=== PATIENT | male | born 1965 | race Two or more races ===

== ENCOUNTER 2016-12-09 14:40 | Day surgery (SDC) | payer OTHER ==
[2016-12-09] MEDS ORDERED: PROPOFOL 200 MG/20 ML VIAL IVP ONE (14:48)
[2016-12-09] MEDS ORDERED: NS 500 ML IV ONE (14:48)
[2016-12-09] MEDS ORDERED: MIDAZOLAM 2 MG/2 ML VIAL IVP ONE (14:48)
[2016-12-09] MEDS ORDERED: fentaNYL 100 MCG/2 ML INJ IVP ONE (14:48)
--- NOTE | 2016-12-09 15:03 | CPEKG ---
Heart Rate: 97 RR Interval: 619 QRSD Interval: 96 QT Interval: 376 QTC Interval: 478 QRS [place]: -22 T Wave [place]: 22 EKG Severity - ABNORMAL ECG - EKG Impression: ATRIAL FIBRILLATION, V-RATE 79-115 EKG Impression: MULTIPLE VENTRICULAR PREMATURE COMPLEXES EKG Impression: BORDERLINE LEFT AXIS DEVIATION EKG Impression: Lateral T wave inversions Electronically Signed By: Feliberto Peters 09-Dec-2016 21:25:09
[2016-12-09 15:28] LABS: ANION GAP 12 mEq/L (8-16); CALCIUM 9.6 mg/dL (8.5-10.4); CARBON DIOXIDE 25 mEq/l (22-31); CHLORIDE 107 mEq/L (97-110); CREATININE 0.9 mg/dL (0.7-1.3); GLOMERULAR FILTRATION RATE > 60; GLUCOSE 97 mg/dL (70-100); POTASSIUM 4.4 mEq/L (3.5-5.2); SODIUM 144 mEq/L (134-144)
[2016-12-09 15:32] LABS: INR 1.22 (0.83-1.16); PROTIME(PATIENT) 15.4 SEC (12.0-15.0)
[2016-12-09 15:33] LABS: APTT 30.4 SEC (23.0-38.0)
[2016-12-09] MEDS ORDERED: ATROPINE SULFATE 1 MG/10 ML SYR ONE (16:27)
[2016-12-09] MEDS ORDERED: PROPOFOL 200 MG/20 ML VIAL ONE ×2 (16:49→17:04)
[2016-12-09] MEDS ORDERED: MIDAZOLAM 2 MG/2 ML VIAL ONE (16:57)
--- NOTE | 2016-12-09 17:16 | CPEKG ---
Heart Rate: 78 RR Interval: 769 P-R Interval: 208 QRSD Interval: 104 QT Interval: 408 QTC Interval: 465 P [place]: 26 QRS [place]: -33 T Wave [place]: 29 EKG Severity - ABNORMAL ECG - EKG Impression: SINUS RHYTHM EKG Impression: MIGUEL, CONSIDER BIATRIAL ABNORMALITIES EKG Impression: LEFT AXIS DEVIATION EKG Impression: LEFT VENTRICULAR HYPERTROPHY EKG Impression: Lateral T wave inversions Electronically Signed By: Feliberto Peters 09-Dec-2016 21:25:25
--- NOTE | 2016-12-09 23:17 | CPR ---
[f rep st] NONINVASIVE CARDIAC PROCEDURE REPORT PROCEDURE PERFORMED: Cardioversion report. INDICATION: Atrial fibrillation. ANESTHESIOLOGIST: Dr. Fadumo Pedersen PROCEDURE: Informed consent was obtained. CORRY was done. Patient was on Eliquis for anticoagulation . A single 200 joule biphasic synchronized DC cardioversion was done. This converted him to normal sinus rhythm. No complications. /[id number]/MODL
== END 2016-12-09 19:02 | disposition home or self-care (01) ==
LOC: FCATH 14:40
PROVIDERS: ATTEND Internal Medicine Cardiovascular Disease
PROC: 5A2204Z Restoration of Cardiac Rhythm, Single (ICD-10-PCS; principal; 2016-12-09)
PROC: B245ZZ4 Ultrasonography of Left Heart, Transesophageal (ICD-10-PCS; principal; 2016-12-09)
DX: I48.1 Persistent atrial fibrillation (principal); I10 Essential (primary) hypertension; G47.30 Sleep apnea, unspecified; Z79.01 Long term (current) use of anticoagulants
CPT/HCPCS: J0461; J2250; J2704

== ENCOUNTER 2017-09-05 07:15 | Inpatient (IN) | payer OTHER ==
[2017-09-16] MEDS ORDERED: niCARdipine/NACL 200 ML IV SCH (06:00)
[2017-09-16] MEDS ORDERED: INSULIN REGULAR HUMAN 100 UNIT in NS 100 ML IV ONE (06:00)
[2017-09-16] MEDS ORDERED: SODIUM BICARBONATE 20 MEQ, LIDOCAINE 1% 10 ML in NORMOSOL-R 1,000 ML MISC ONE (06:00)
[2017-09-16] MEDS ORDERED: AMINOCAPROIC ACID 5 GM/20 ML VIAL IV ONE (06:00)
[2017-09-16] MEDS ORDERED: PHENYLEPHRINE HCL 50 MG in NS 250 ML IV ONE (06:00)
[2017-09-16] MEDS ORDERED: ceFAZolin 2 GM/SWFI 2 GM/20 ML SYR IVP ONE (06:00)
[2017-09-16] MEDS ORDERED: MANNITOL 25% 12.5 GM/50 ML VIAL IVP ONE (06:00)
[2017-09-16] MEDS ORDERED: NS 1,000 ML IV ONE (06:00)
[2017-09-16] MEDS ORDERED: LIDOCAINE 1% 5 ML SDV ID PRN (06:00)
[2017-09-16] MEDS ORDERED: CITRATE DEXTROSE SOLN 500 ML BAG MISC ONE (06:00)
[2017-09-16] MEDS ORDERED: NOREPINEPHRINE BITARTRATE 16 MG in NS 250 ML IV ONE (06:00)
[2017-09-16] MEDS ORDERED: MIDAZOLAM 2 MG/2 ML VIAL IVP ONE (06:56)
--- NOTE | 2017-09-16 06:56 | PDANEPAE ---
ANE History of Present Illness here for Maze and ligation of atrial appendage ANE Past Medical History - Cardiovascular History Hx Hypertension: Yes Hx Arrhythmias: Yes Hx Chest Pain: No Hx Coronary Artery / Peripheral Vascular Disease: No Hx CHF / Valvular Disease: No Hx Palpitations: No Cardiovascular History Comment: afib/ aflutter. cardioversion x 4 - Pulmonary History Hx COPD: No Hx Asthma/Reactive Airway Disease: No Hx Recent Upper Respiratory Infection: No Hx Oxygen in Use at Home: No Hx Sleep Apnea: Yes Sleep Apnea Screening Result - Last Documented: Positive Pulmonary History Comment: rj positive- instructed pt to bring cpap to hospital - Neurologic History Hx Cerebrovascular Accident: No Hx Seizures: No Hx Dementia: No - Endocrine History Hx Diabetes: No - Renal History Hx Renal Disorders: No - Liver History Hx Hepatic Disorders: No - Neurological & Psychiatric Hx Hx Neurological and Psychiatric Disorders: No - Cancer History Hx Cancer: No - Congenital Disorder History Hx Congenital Disorders: No - GI History Hx Gastrointestinal Disorders: No - Other Health History Other Health History: extreme fatigue- pt feels may be r/t medications - Chronic Pain History Chronic Pain: No - Surgical History Prior Surgeries: appy at 17 yo. cardioversions 12/09/16, 11/02/16, 04/24/16, ANE Review of Systems Review of Systems: - Exercise capacity METS (RN): 3 METS ANE Patient History - Allergies Allergies/Adverse Reactions: No Known Allergies Allergy (Verified 08/12/17 14:11) - Home Medications Home Medications: Apixaban [Eliquis] 5 mg PO BID 04/24/16 [Last Taken 09/07/17] Multivitamins [Multivitamin (*)] 1 each PO DAILY 04/24/16 [Last Taken 09/15/17] [place]-3 Fatty Acids [Fish Oil 1000 mg (*)] 1,000 mg PO DAILY 04/24/16 [Last Taken 09/15/17] Metoprolol Tartrate 08/12/17 [Last Taken 09/15/17 19:00] Amlodipine Besylate [Norvasc] 2.5 mg DAILY 09/16/17 [Last Taken 09/15/17] - Smoking Hx Smoking Status: Never smoked - Family Anes Hx Family Hx Anesthesia Complications: none ANE Labs/Vital Signs - Vital Signs Height: 168 cm Weight: 90.718 kg ANE Physical Exam - Airway Neck exam: FROM, spinal fusion Mallampati Score: Class 1 Mouth exam: normal dental/mouth exam - Pulmonary Pulmonary: no respiratory distress - Cardiovascular Cardiovascular: regular rate and rhythym, irregularly irregular - ASA Status ASA Status: III ANE Anesthesia Plan Anesthesia Plan: general endotracheal anesthesia Lines/Monitors: central line, CORRY Specialized Airway: double lumen tube
[2017-09-16] MEDS ORDERED: DOPamine/DEXTROSE/250 ML BAG IV ONE (06:58)
[2017-09-16] MEDS ORDERED: CITRATE DEXTROSE SOLN 500 ML BAG ONE (06:59)
[2017-09-16] MEDS ORDERED: POTASSIUM Cl (KCl) 20 MEQ/50 ML BAG IV ONE (06:59)
[2017-09-16] MEDS ORDERED: NA BICARBONATE 50 MEQ/50 ML VIAL ONE (06:59)
[2017-09-16] MEDS ORDERED: MILRINONE/DEXTROSE/100 ML BAG IV ONE (06:59)
[2017-09-16] MEDS ORDERED: AMINOCAPROIC ACID 5 GM/20 ML VIAL ONE (06:59)
[2017-09-16] MEDS ORDERED: LIDOCAINE 2% 100 MG/5 ML SYR ONE (06:59)
[2017-09-16] MEDS ORDERED: niCARdipine/NACL/200 ML BAG IV ONE (06:59)
[2017-09-16] MEDS ORDERED: PROTAMINE SULFATE 50 MG/5 ML VIAL IVP ONE (06:59)
[2017-09-16] MEDS ORDERED: ALBUMIN 5% 250 ML BOTTLE IV ONE (06:59)
[2017-09-16] MEDS ORDERED: CALCIUM CHLORIDE 1 GM/10 ML INJ ONE (06:59)
[2017-09-16] MEDS ORDERED: AMIODARONE HCL 150 MG/3 ML VIAL ONE (07:00)
[2017-09-16] MEDS ORDERED: HEPARIN 10,000 UNIT/10 ML MDV ONE (07:00)
[2017-09-16] MEDS ORDERED: ceFAZolin 1 GM VIAL ONE (07:00)
[2017-09-16] MEDS ORDERED: MAGNESIUM SULFATE 1 GM/2 ML VIAL ONE (07:00)
[2017-09-16] MEDS ORDERED: methylPREDNISolone SOD SUCC 1 GM/8 ML VIAL ONE (07:00)
[2017-09-16] MEDS ORDERED: ADENOSINE 6 MG/2 ML VIAL ONE (07:00)
--- NOTE | 2017-09-16 07:03 | PDHPUP ---
History & Physical Update H&P update statement: This history and physical update is based on an assessment of the patient which was completed after admission or registration (within 24 hours), but prior to the surgery/procedure.
[2017-09-16] MEDS ORDERED: fentaNYL 100 MCG/2 ML INJ ONE ×5 (07:05→14:16)
[2017-09-16] MEDS ORDERED: PROPOFOL/EMULSION 500 MG/50 ML BOTTLE IV ONE (07:06)
[2017-09-16] MEDS ORDERED: LR 1,000 ML IV ONE (07:12)
[2017-09-16] MEDS: MUPIROCIN 2% 22 GM OINT NS SCH ×2 (07:15→18:55)
[2017-09-16] MEDS ORDERED: DEXAMETHASONE 10 MG/ML VIAL IVP ONE (07:30)
[2017-09-16] MEDS ORDERED: BUPIVACAINE 0.25% 30 ML SDV ONE (08:16)
[2017-09-16] MEDS ORDERED: fentaNYL 50 MCG PATCH TD ONE (12:00)
[2017-09-16] MEDS ORDERED: PROMETHAZINE HCL 25 MG/ML INJ IVP PRN (12:49)
[2017-09-16] MEDS ORDERED: ONDANSETRON 4 MG/2 ML VIAL IVP PRN (12:49)
[2017-09-16] MEDS ORDERED: ALBUTEROL 3 ML DEYVIAL IH PRN (12:49)
[2017-09-16] MEDS ORDERED: NALOXONE HCL 0.4 MG/ML INJ IVP PRN (12:49)
[2017-09-16] MEDS ORDERED: DEXAMETHASONE 4 MG/ML VIAL IVP PRN (12:49)
[2017-09-16] MEDS ORDERED: METOCLOPRAMIDE 10 MG/2 ML VIAL IVP PRN (13:35)
[2017-09-16] MEDS ORDERED: METOCLOPRAMIDE 10 MG TAB PO PRN (13:35)
[2017-09-16] MEDS ORDERED: ACETAMINOPHEN 325 MG TAB PO PRN (13:35)
[2017-09-16] MEDS ORDERED: ceFAZolin 2 GM/DEXTROSE 100 ML IV SCH (14:00)
[2017-09-16] MEDS: fentaNYL 100 MCG/2 ML INJ IVP PRN ×3 (14:04→14:50)
[2017-09-16] MEDS ORDERED: HYDROmorphONE/DILAUDID 1 MG/ML INJ ONE (14:20)
[2017-09-16] MEDS: HYDROmorphONE/DILAUDID 1 MG/ML INJ IVP PRN ×2 (14:23→14:39)
[2017-09-16] MEDS ORDERED: ENOXAPARIN 80 MG/0.8 ML SYR SC ONE (16:30)
[2017-09-16] MEDS: HYDROCODONE/APAP 5/325 TAB PO PRN ×2 (17:40→21:55)
--- NOTE | 2017-09-16 17:54 | GOP ---
[f rep st] OPERATIVE REPORT DATE OF OPERATION: 09/16/2017 SURGEON: Mason Holland DO MUCKER COFFERDAM: Justine Granados PA-C. ANESTHESIOLOGIST: Aaron Bolaños MD PREOPERATIVE DIAGNOSIS: Long-standing persistent atrial fibrillation. POSTOPERATIVE DIAGNOSIS: Long-standing persistent atrial fibrillation. PROCEDURE PERFORMED: Bilateral thoracoscopic hybrid MAZE procedure with bilateral testing. FINDINGS: DESCRIPTION OF PROCEDURE: Patient was referred for a thoracoscopic MAZE procedure with a history of failed catheter ablations x2 and multiple cardioversions. His Eliquis was held, and he was bridged w [facility] Lovenox. He was consented and brought to the operating room. A double-lumen endotracheal tube w as placed as was the monitoring femoral arterial line and a triple lumen CVP. He was placed supine w [facility] IV bags beneath each chest for intermittent inflation for exposure. The arms were placed lateral . He was prepped and draped in a sterile classical manner. Timeout was confirmed with the team. We then began on the right chest with a camera port at the 4th intercostal space in the anterior axil raquel line, directed at the transverse sinus. Then, under thoracoscopic guidance, we placed 2 other p ortals: One below the 2nd intercostal rib in the mid clavicular line, and one in the anterior axilla ry line above the diaphragm under fluoroscopic guidance; all directed toward the mediastinum. With t he lung deflated, and with inflating CO2, we then opened the pericardium approximately 2 cm ventral t o the phrenic nerve and extended it up above the superior vena cava. This was extended inferiorly do wn toward the diaphragm, avoiding the phrenic nerve. Three stay sutures were placed for retraction. We then did testing for GPs with multiple sites identified and ablated on the right side. We then, with blunt dissection, developed a plane from the right superior pulmonary vein to the left superior pulmonary vein with direct visualization. We then used the cool rail to ablate the fat in the area f or better visualization. The left pulmonary vein, the ligament, and the left atrial appendage were v isualized through the transverse sinus. We then spent a great deal of time ablating from above the l eft atrial appendage and the left superior pulmonary vein all the way back to the right superior pulm onary vein, overlapping it with multiple maharaj with transmural lesions confirmed by being less than 2 0 seconds in time. We then developed the oblique sinus, and through the inferior port, brought a dis secting light between the main pulmonary artery and right superior pulmonary vein. We then placed th e clamp across the antrum and performed approximately 9 or 10 maharaj until transmurality was confirmed overlapping 3 lines staying on the antrum. We had tested the patient for entrance block, and there was none prior to the procedure; however, at the completion of the procedure testing for entrance blo ck at the superior, inferior, and the bifurcation were negative. We then performed the inferior box lesion set, connecting the left inferior pulmonary vein all the way across to the right inferior pulm onary vein with transmurality confirmed. Multiple repeat lesion sets were performed. We then perfor med the right atrial lesion set with transmurality confirmed, utilizing the cool rail, staying away f rom the sinus node on the very upper portion of the superior vena cava to the diaphragm along the inf erior vena cava. We then did a connecting lesion to the right atrial appendage with transmurality co nfirmed, as well. We then closed the pericardium over the right atrium with a single suture to avoid herniation. A single drain was placed. 10.5% Marcaine with epinephrine was used to infiltrate inte rcostal spaces, and the lung was reinflated. We then deflated the right IV bag under the chest and i nflated the left one. We then deflated the left lung and placed 3 portals in the standard fashion un henok fluoroscopic guidance. We then opened the pericardium inferior to the phrenic nerve, staying shefali te posterior along the hilum up above to the pulmonary artery. Visualization of the transmural lesio ns coming across on the other side were well identified. We then divided the ligament with a Harmoni c scalpel. We then developed a plane between the left superior pulmonary vein and the pericardium. We then brought the dissecting light from inferior and, with direct thoracoscopic visualization, watc hed it come through the pericardium and previously developed plane between the pericardium and the le ft superior pulmonary vein without difficulty. It was grasped and brought up. We then directed the clamp to the antrum of the left pulmonary vein system and performed 6 lesion sets. Prior to doing th at we tested for entrance block, and it was quiet. Despite that, we repeated the ablation and repeat ed testing, which remained silent for entrance block. The patient was in atrial fib during the proce dure. We then completed the inferior lesion set, overlapping the previous inferior lesion set done f rom the other side, making sure it transected the cross-clamp sites on the pulmonary veins. We then performed on the dome of the left atrium as well, and then the appendage from the transverse line up to the appendage. We then brought an AtriClip through the inferior port. I then placed an AtriClip u nder CORRY guidance flush with the left atrium without difficulty. The left atrium was decompressed. The dome lesion was also connected to the previous dome lesion, crossing the pulmonary vein ablation site. Pericardium was left open. A single drain was placed. The surgical sites were closed with a single chest tube brought out the inferior drain and connected to a Pleur-evac. He was extubated and returned to the recovery room. Prior to that, we cardioverted him into sinus rhythm with a rate of 65. /[id number]/MODL
[2017-09-16] MEDS: ceFAZolin 2 GM in D5W 100 ML IV SCH ×2 (18:24→21:25)
[2017-09-16] MEDS: METOPROLOL TARTRATE 50 MG TAB PO SCH (21:25)
[2017-09-17] MEDS: ceFAZolin 2 GM in D5W 100 ML IV SCH ×2 (01:14→05:29)
[2017-09-17] MEDS: HYDROCODONE/APAP 5/325 TAB PO PRN ×2 (01:35→06:04)
[2017-09-17 05:49] LABS: HEMOGLOBIN 15.6 g/dL (13.7-17.5); MEAN CELL HEMOGLOBIN CONCENTR. 35.5 g/dL (32.4-36.7); RED BLOOD CELL COUNT 4.73 10^6/uL (4.40-6.38); RED CELL DISTRIBUTION WIDTH 12.8 % (11.5-15.2)
[2017-09-17] MEDS ORDERED: HEPARIN 5,000 UNIT/0.5 ML SYR SC SCH (06:00)
[2017-09-17 06:14] LABS: ANION GAP 17 mEq/L (8-16); CALCIUM 8.7 mg/dL (8.5-10.4); CARBON DIOXIDE 23 mEq/l (22-31); CHLORIDE 101 mEq/L (97-110); CREATININE 1.4 mg/dL (0.7-1.3); GLOMERULAR FILTRATION RATE 53; GLUCOSE 167 mg/dL (70-100); POTASSIUM 5.9 mEq/L (3.5-5.2); SODIUM 141 mEq/L (134-144)
[2017-09-17] MEDS ORDERED: KETOROLAC 15 MG/1 ML SDV IVP ONE ×2 (06:45→07:00)
--- NOTE | 2017-09-17 07:35 | SOAPPROG ---
SOAP Progress Note Assessment/Plan: POD #1 B/L thorascopic hybrid Maze procedure Long standing persistent atrial fibrillation s/p hybrid Maze - CTs likely out this morning - Thromboprophylaxis and beta-zeinab resumed - PT for ambulation Acute blood loss anemia - Stable without the need for blood product transfusions RAKAN - Likely secondary to dehydration - IVF ordered Subjective: Hard to take deep breaths. Come chest tube site pain. Feels anxious about his prognosis. Objective: Vital Signs Temp Pulse Resp BP Pulse Ox 36.9 C 94 20 132/88 H 96 09/17/17 04:00 09/17/17 04:00 09/17/17 04:00 09/17/17 04:00 09/17/17 04:00 Laboratory Results 09/17/17 05:36 09/17/17 05:36 09/16/17 09/17/17 09/18/17 05:59 05:59 05:59 Intake Total 2970 Output Total 850 Balance 2120 Physical Exam - Physical Exam General Appearance: WD/WN, alert, no apparent distress, anxiety EENT: No scleral icterus (R), No scleral icterus (L) Neck: normal inspection Respiratory: No respiratory distress Cardiac/Chest: regular rate, rhythm Abdomen: non-tender, soft, No distended Skin: normal color, warm/dry Extremities: No pedal edema Neuro/Psych: no motor/sensory deficits, alert, normal mood/affect, oriented x 3 ICD10 Worksheet Patient Problems: Problems Problem Status Onset Atrial fibrillation or flutter Acute
[2017-09-17] MEDS: METOPROLOL TARTRATE 50 MG TAB PO SCH ×2 (08:27→20:54)
[2017-09-17] MEDS: MULTIVITAMINS 1 EACH TAB PO SCH (08:28)
[2017-09-17] MEDS: OMEGA-3 FATTY ACIDS 1,000 MG CAP PO SCH (08:28)
[2017-09-17] MEDS: APIXABAN 5 MG TAB PO SCH ×2 (08:29→20:54)
[2017-09-17] MEDS: 1/2 NS 1,000 ML IV SCH ×2 (08:32→14:58)
[2017-09-17] MEDS ORDERED: fentaNYL 50 MCG PATCH TD SCH (10:00)
[2017-09-17] MEDS: predniSONE 20 MG TAB PO SCH ×2 (10:14→18:15)
[2017-09-17] MEDS ORDERED: ALPRAZolam 0.25 MG TAB PO PRN (10:54)
[2017-09-17] MEDS: KETOROLAC 30 MG/1 ML SDV IVP SCH ×3 (12:19→23:51)
[2017-09-17] MEDS ORDERED: FAMOTIDINE 20 MG TAB PO PRN (14:44)
[2017-09-17] MEDS ORDERED: MAG HYDROX/AL HYDROX/SIMETH 30 ML UDCUP PO PRN (14:45)
--- NOTE | 2017-09-17 15:55 | ASMTCMCOM ---
CM Note CM Note Notes: Pt. is a 52-year-old man admitted w/ Afib. Pt. is anxious. Pt. lives w/ his Marley. Await PT consult to assist w/ d/c POC. RN anticipates independent d/c when ready. CM to follow. Date Signed: 09/17/2017 03:55 PM Electronically Signed By:Audra Sena LCSW
[2017-09-17 17:34] LABS: ANION GAP 10 mEq/L (8-16); CALCIUM 8.8 mg/dL (8.5-10.4); CARBON DIOXIDE 25 mEq/l (22-31); CHLORIDE 99 mEq/L (97-110); CREATININE 1.2 mg/dL (0.7-1.3); GLOMERULAR FILTRATION RATE > 60; GLUCOSE 141 mg/dL (70-100); POTASSIUM 4.5 mEq/L (3.5-5.2); SODIUM 134 mEq/L (134-144)
[2017-09-18 06:13] LABS: ANION GAP 13 mEq/L (8-16); CARBON DIOXIDE 24 mEq/l (22-31); CHLORIDE 98 mEq/L (97-110); GLOMERULAR FILTRATION RATE > 60; GLUCOSE 151 mg/dL (70-100); POTASSIUM 5.1 mEq/L (3.5-5.2); SODIUM 135 mEq/L (134-144)
[2017-09-18] MEDS: KETOROLAC 30 MG/1 ML SDV IVP SCH ×3 (06:17→17:54)
--- NOTE | 2017-09-18 07:50 | SOAPPROG ---
SOAP Progress Note Assessment/Plan: POD #2 B/L thorascopic hybrid Maze procedure Long standing persistent atrial fibrillation s/p hybrid Maze - Thromboprophylaxis and beta-zeinab resumed - PT for ambulation Acute blood loss anemia - Stable without the need for blood product transfusions RAKAN - Resolved with hydration KELSEY - Home device in room and used while sleeping Respiratory insufficiency - Pt continues to be tachypneic. CXR reviewed without PTX although right hemidiaphragm elevated. Trial of Xanax underway to r/o anxiety component. Doubtful of PE since pt anticoagulated. Subjective: Hard to take deep breaths. Denies pain. Feels nervous although not sure why. Objective: Vital Signs Temp Pulse Resp BP Pulse Ox 36.7 C 88 20 147/93 H 77 L 09/18/17 05:15 09/18/17 05:15 09/18/17 05:15 09/18/17 05:15 09/18/17 07:29 Laboratory Results 09/17/17 05:36 09/18/17 05:00 09/17/17 09/18/17 09/19/17 05:59 05:59 05:59 Intake Total 2970 3185 Output Total 850 1200 Balance 2120 1984 Physical Exam - Physical Exam General Appearance: WD/WN, alert, mild distress EENT: No scleral icterus (R), No scleral icterus (L) Neck: normal inspection Respiratory: accessory muscle use, retractions Cardiac/Chest: regular rate, rhythm Abdomen: non-tender, soft, No distended Skin: normal color, warm/dry Extremities: No pedal edema Neuro/Psych: no motor/sensory deficits, alert, normal mood/affect, oriented x 3 ICD10 Worksheet Patient Problems: Problems Problem Status Onset Atrial fibrillation or flutter Acute
[2017-09-18] MEDS ORDERED: MAGNESIUM HYDROXIDE 30 ML UDCUP PO PRN (08:07)
[2017-09-18] MEDS ORDERED: POLYETHYLENE GLYCOL 3350 17 GM PKT PO PRN (08:07)
[2017-09-18] MEDS ORDERED: LACTULOSE 20 GM/30 ML UDCUP PO PRN (08:07)
[2017-09-18] MEDS ORDERED: BISACODYL 10 MG SUPP PR PRN (08:07)
[2017-09-18] MEDS: METOPROLOL TARTRATE 50 MG TAB PO SCH ×2 (08:12→20:24)
[2017-09-18] MEDS: ALPRAZolam 0.25 MG TAB PO SCH ×3 (08:12→20:15)
[2017-09-18] MEDS: MULTIVITAMINS 1 EACH TAB PO SCH (08:12)
[2017-09-18] MEDS: OMEGA-3 FATTY ACIDS 1,000 MG CAP PO SCH (08:12)
[2017-09-18] MEDS: APIXABAN 5 MG TAB PO SCH ×2 (08:12→20:24)
[2017-09-18] MEDS: SENNOSIDES/DOCUSATE SODIUM TAB PO SCH ×2 (08:23→20:25)
[2017-09-18] MEDS: predniSONE 20 MG TAB PO SCH ×2 (08:23→17:55)
[2017-09-18] MEDS ORDERED: FUROSEMIDE 40 MG/4 ML VIAL IVP ONE (09:09)
[2017-09-19] MEDS: KETOROLAC 30 MG/1 ML SDV IVP SCH ×2 (00:07→06:19)
[2017-09-19] MEDS ORDERED: IBUPROFEN 200 MG TAB PO PRN (07:45)
--- NOTE | 2017-09-19 07:45 | SOAPPROG ---
SOAP Progress Note Assessment/Plan: POD #3 B/L thorascopic hybrid Maze procedure Long standing persistent atrial fibrillation s/p hybrid Maze - Thromboprophylaxis and beta-zeinab resumed - PT for ambulation Acute blood loss anemia - Stable without the need for blood product transfusions RAKAN - Resolved with hydration KELSEY - Home device in room and used while sleeping Respiratory insufficiency - Improved. Will monitor right hemidiaphragm elevation. Disposition - Home today without services Subjective: No complaints. Feels well. Objective: Vital Signs Temp Pulse Resp BP Pulse Ox 36.7 C 70 16 151/90 H 96 09/19/17 04:00 09/19/17 04:00 09/19/17 04:00 09/19/17 04:00 09/19/17 04:00 Laboratory Results 09/17/17 05:36 09/18/17 05:00 09/18/17 09/19/17 09/20/17 05:59 05:59 05:59 Intake Total 3185 1100 Output Total 1200 Balance 1985 1100 Physical Exam - Physical Exam General Appearance: WD/WN, alert, no apparent distress EENT: No scleral icterus (R), No scleral icterus (L) Neck: normal inspection Respiratory: No respiratory distress Cardiac/Chest: regular rate, rhythm Abdomen: non-tender, soft, No distended Skin: normal color, warm/dry Extremities: No pedal edema Neuro/Psych: no motor/sensory deficits, alert, normal mood/affect, oriented x 3 ICD10 Worksheet Patient Problems: Problems Problem Status Onset Atrial fibrillation or flutter Acute
[2017-09-19] MEDS: OMEGA-3 FATTY ACIDS 1,000 MG CAP PO SCH ×2 (08:01→08:05)
[2017-09-19] MEDS: SENNOSIDES/DOCUSATE SODIUM TAB PO SCH (08:01)
[2017-09-19] MEDS: MULTIVITAMINS 1 EACH TAB PO SCH (08:02)
[2017-09-19] MEDS: METOPROLOL TARTRATE 50 MG TAB PO SCH (08:02)
[2017-09-19] MEDS: APIXABAN 5 MG TAB PO SCH (08:02)
--- NOTE | 2017-09-19 08:50 | PDHOMEO2F ---
Home Oxygen Face to Face Home Orders: I certify that a physician or a nurse practitioner or physician's assistant teacher primary has had a [id number] encounter with this patient on the date of this order due to the diagnosis listed, which relates to the primary reason the patient requires home oxygen. Alternative treatments have been tried, or considered, and deemed ineffective. It is anticipated that supplemental oxygen will result in improvement with treatment. Home oxygen qualifying diagnosis: s/p thoracoscopic Maze, hypoxemia, right elevated barbara-diaphragm SpO2 on room air (%): 60 Frequency of home oxygen needed: with activity Home oxygen liters per minute: 2 Home oxygen delivery device: nasal cannula Concentrator: Yes E-tanks for mobility and back up: Yes If ordering portable O2, is the patient mobile in the home?: Yes I certify that, based on these findings, the home oxygen is medically necessary for this patient for the following length of time. Length of time home oxygen needed: 1 month
[2017-09-19] MEDS ORDERED: predniSONE 20 MG TAB PO SCH (09:00)
[2017-09-19] MEDS ORDERED: amLODIPine BESYLATE 5 MG TAB PO SCH (09:00)
--- NOTE | 2017-09-19 09:18 | PDDCSUM ---
Discharge Summary Discharge Summary: ADMISSION DATE: 09/16/17 DISCHARGE DATE: 09/19/17 ADMISSION DX: 1. Longstanding persistent atrial fibrillation DISCHARGE DX: 1. Longstanding persistent atrial fibrillation 2. Acute blood loss anemia 3. Acute kidney injury PROCEDURES 09/16/17, Mason Holland: 1. Bilateral thoracoscopic hybrid Maze procedure with bilateral testing HOSPITAL COURSE BY PROBLEM LIST 1. Longstanding persistent atrial fibrillation - s/p hybrid Maze procedure. Stable post-operative course. Discharge in sinus rhythm. Thromboprophylaxis with Eliquis prescribed. AF prophylaxis with metoprolol. 2. Acute blood loss anemia - stable without the need for blood product transfusions 3. Acute kidney injury - resolved with fluid administration. CONDITION Good DISPOSITION Home, self-care ACTIVITY Pt was instructed on sternal precautions, activity limitations, and which problems to call [facility] with. Please see Discharge Plan in chart for specifics. D/C MEDICATIONS 1. Apixaban [Eliquis] 5 mg PO BID 2. Multivitamins [Multivitamin (*)] 1 each PO DAILY 3. [place]-3 Fatty Acids [Fish Oil 1000 mg (*)] 1,000 mg PO DAILY 4. Amlodipine Besylate [Norvasc] 2.5 mg DAILY 5. Acetaminophen [Tylenol 325mg (*)] 325 - 650 mg PO Q4HRS PRN 6. Hydrocodone/APAP 5/325 [[place] 5/325 (*)] 1 - 2 tab PO Q4HRS PRN 7. Ibuprofen [Motrin (*)] 400 mg PO Q6HRS PRN 8. Metoprolol Tartrate [Lopressor 50 mg (*)] 50 mg PO BID 9. Sennosides/Docusate Sodium [Senokot-S] 2 tab PO BID 10. methylPREDNISolone [Medrol Dose Harvinder] 4 mg PO AD PENDING STUDIES/LABS 1. CXR prior to surgical follow-up F/U APPOINTMENTS 1. Mason Holland - 09/27/17, 1:15
[2017-09-19 11:04] VITALS: BP 138/97; PULSE 73; RESP 24; TEMP 97.5; O2SAT 93
--- NOTE | 2017-09-20 16:14 | ASDISCHSUM ---
Discharge Information Plan Status:Home with Home Health Medically Cleared to Leave:09/19/2017 Discharge Date:09/19/2017 11:30 AM CM D/C Disposition: ADT D/C Disposition:Home, Routine, Self-Care Projected Discharge Date:09/19/2017 12:00 AM Transportation at D/C: Discharge Delay Reason: Follow-Up Date:09/19/2017 12:00 AM Discharge Slot: Final Diagnosis: Placement Information Patient Contact Information Contact Name:SARITA Relationship: Address:[address] [place] [address] Work Phone: [facility] [place] Alternate Phone: [facility]/Zip Code:[place] [address] Email: Financial Information Financial Class:[facility] Primary Plan Desc:[employer] OPEN ACC LOCAL Primary Plan Number:[id number] Secondary Plan Desc: Secondary Plan Number: Assessment Information [facility] CM Progress Note CM Note CM Note Notes: Pt. is a 52-year-old man admitted w/ Afib. Pt. is anxious. Pt. lives w/ his [place]. Await PT consult to assist w/ d/c POC. RN anticipates independent d/c when ready. CM to follow. Date Signed: 09/17/2017 03:55 PM Electronically Signed By:Audra Sena LCSW Intervention Information
== END 2017-09-19 11:30 | disposition home or self-care (01) | DRG 229 ==
LOC: F2W 09-16 05:56
PROVIDERS: ADMIT Thoracic Surgery (Cardiothoracic Vascular Surgery); ATTEND Thoracic Surgery (Cardiothoracic Vascular Surgery)
PROC: 02584ZZ Destruction of Conduction Mechanism, Percutaneous Endoscopic Approach (ICD-10-PCS; principal; 2017-09-16 07:15)
PROC: 02L70CK Occlusion of Left Atrial Appendage with Extraluminal Device, Open Approach (ICD-10-PCS; principal; 2017-09-16 07:15)
PROC: 02HV33Z Insertion of Infusion Device into Superior Vena Cava, Percutaneous Approach (ICD-10-PCS; principal; 2017-09-16 07:15)
PROC: B245ZZ4 Ultrasonography of Left Heart, Transesophageal (ICD-10-PCS; principal; 2017-09-16 07:15)
DX: I48.1 Persistent atrial fibrillation (principal); D62 Acute posthemorrhagic anemia; N17.9 Acute kidney failure, unspecified; I11.9 Hypertensive heart disease without heart failure; G47.33 Obstructive sleep apnea (adult) (pediatric); F41.9 Anxiety disorder, unspecified; R06.89 Other abnormalities of breathing; Z79.01 Long term (current) use of anticoagulants
CPT/HCPCS: J0153; J0171; J0282; J0690; J1170; J1265; J1644; J1815; J1885; J1940; J2001; J2150; J2250; J2260; J2370; J2704; J2720; J2765; J2930; J3010; J7060; P9041

== ENCOUNTER → 2017-09-27 | Outpatient (CLI) | payer OTHER | LOC: FIMAGING 12:37 | PROVIDERS: ATTEND Thoracic Surgery (Cardiothoracic Vascular Surgery) | DX: R06.02 Shortness of breath (principal); M48.14 Ankylosing hyperostosis [Forestier], thoracic region; Z86.79 Personal history of other diseases of the circulatory system ==

== ENCOUNTER 2017-09-28 09:35 | Day surgery (SDC) | payer OTHER ==
[2017-09-28] MEDS ORDERED: ATROPINE SULFATE 1 MG/10 ML SYR IVP ONE (09:39)
[2017-09-28] MEDS ORDERED: BENZOCAINE UNIT DOSE SPRAY HURRICAINE MM ONE (09:39)
[2017-09-28] MEDS ORDERED: MIDAZOLAM 2 MG/2 ML VIAL IVP ONE (09:39)
[2017-09-28] MEDS ORDERED: NS 500 ML IV ONE (09:39)
[2017-09-28] MEDS ORDERED: fentaNYL 100 MCG/2 ML INJ IVP ONE (09:39)
--- NOTE | 2017-09-28 09:51 | CPEKG ---
Heart Rate: 124 RR Interval: 484 QRSD Interval: 86 QT Interval: 332 QTC Interval: 477 QRS [place]: 103 T Wave [place]: 34 EKG Severity - ABNORMAL ECG - EKG Impression: ATRIAL FLUTTER, A-RATE 300 EKG Impression: RIGHT AXIS DEVIATION EKG Impression: CONSIDER LEFT VENTRICULAR HYPERTROPHY Electronically Signed By: Jose Manuel Adam 28-Sep-2017 11:06:31
[2017-09-28 10:16] LABS: INR 1.28 (0.83-1.16)
[2017-09-28] MEDS ORDERED: PROPOFOL 200 MG/20 ML VIAL ONE (10:54)
[2017-09-28] MEDS ORDERED: LIDOCAINE 2% 100 MG/5 ML SYR ONE (10:57)
[2017-09-28] MEDS ORDERED: LIDOCAINE 1% 5 ML SDV ONE (10:58)
[2017-09-28] MEDS ORDERED: LABETALOL HCL 50 MG/10 ML SYR IVP PRN (11:17)
[2017-09-28] MEDS ORDERED: NALOXONE HCL 0.4 MG/ML INJ IVP PRN (11:17)
--- NOTE | 2017-09-28 11:17 | PDHPUP ---
History & Physical Update H&P update statement: This history and physical update is based on an assessment of the patient which was completed after admission or registration (within 24 hours), but prior to the surgery/procedure. H&P update: H&P reviewed & patient examined, no change in patient's condition since H&P completed
--- NOTE | 2017-09-28 11:17 | PDANEPAE ---
ANE History of Present Illness History of Ablation for a-fib. Now with A-fib for CORRY and cardioversion. ANE Past Medical History - Cardiovascular History Hx Hypertension: Yes Hx Arrhythmias: Yes Hx Chest Pain: No Hx Coronary Artery / Peripheral Vascular Disease: No Hx CHF / Valvular Disease: No Hx Palpitations: No Cardiovascular History Comment: afib/ aflutter. cardioversion x 4 - Pulmonary History Hx COPD: No Hx Asthma/Reactive Airway Disease: No Hx Recent Upper Respiratory Infection: No Hx Oxygen in Use at Home: No Hx Sleep Apnea: Yes Pulmonary History Comment: rj positive- instructed pt to bring cpap to hospital - Neurologic History Hx Cerebrovascular Accident: No Hx Seizures: No Hx Dementia: No - Endocrine History Hx Diabetes: No - Renal History Hx Renal Disorders: No - Liver History Hx Hepatic Disorders: No - Neurological & Psychiatric Hx Hx Neurological and Psychiatric Disorders: No - Cancer History Hx Cancer: No - Congenital Disorder History Hx Congenital Disorders: No - GI History Hx Gastrointestinal Disorders: No - Other Health History Other Health History: extreme fatigue- pt feels may be r/t medications - Chronic Pain History Chronic Pain: No - Surgical History Prior Surgeries: appy at 17 yo. cardioversions 12/09/16, 11/02/16, 04/24/16, ANE Review of Systems Review of Systems: ANE Patient History - Allergies Allergies/Adverse Reactions: No Known Allergies Allergy (Verified 08/12/17 14:11) - Home Medications Home Medications: Apixaban [Eliquis] 5 mg PO BID 04/24/16 [Last Taken 09/07/17] Multivitamins [Multivitamin (*)] 1 each PO DAILY 04/24/16 [Last Taken 09/15/17] [place]-3 Fatty Acids [Fish Oil 1000 mg (*)] 1,000 mg PO DAILY 04/24/16 [Last Taken 09/15/17] Amlodipine Besylate [Norvasc] 2.5 mg DAILY 09/16/17 [Last Taken 09/15/17] - Smoking Hx Smoking Status: Never smoked - Family Anes Hx Family Hx Anesthesia Complications: none ANE Labs/Vital Signs - Labs Result Diagrams: 09/28/17 09:50 - Vital Signs Height: 170.18 cm ANE Physical Exam - Airway Mallampati Score: Class 2 Mouth exam: normal dental/mouth exam - Pulmonary Pulmonary: no respiratory distress - Cardiovascular Cardiovascular: irregularly irregular - ASA Status ASA Status: II ANE Anesthesia Plan Anesthesia Plan: MAC
--- NOTE | 2017-09-28 11:32 | POSTANESTH ---
Post Anesthetic Evaluation Respiratory Status: Normal, Stable Level of Consciousness/Mental Status: Can Participate in Eval Pain Control: Adequate, Prn Tx Ordered Nausea/Vomiting Control: Adequate, Prn Tx Ordered Complications Possibly Related to Anesthesia: None Noted
--- NOTE | 2017-09-28 11:43 | CPEKG ---
Heart Rate: 77 RR Interval: 779 P-R Interval: 176 QRSD Interval: 92 QT Interval: 384 QTC Interval: 435 P [place]: 42 QRS [place]: 9 T Wave [place]: 39 EKG Severity - NORMAL ECG - EKG Impression: SINUS RHYTHM Electronically Signed By: Feliberto Peters 28-Sep-2017 17:07:59
--- NOTE | 2017-09-28 11:43 | CPEKG ---
Heart Rate: 77 RR Interval: 779 P-R Interval: 176 QRSD Interval: 92 QT Interval: 384 QTC Interval: 435 P [place]: 42 QRS [place]: 9 T Wave [place]: 39 EKG Severity - NORMAL ECG - EKG Impression: SINUS RHYTHM Electronically Signed By: Feliberto Peters 28-Sep-2017 17:07:59
--- NOTE | 2017-09-28 12:57 | PDTEE1 ---
CORRY Cardioversion Procedure Procedure: electrical cardioversion, transesophageal echo Indications: other (Atrial tachycardia / atrial flutter post Maze procedure.) Consent: signed and in chart Anticoagulation: daiana Procedural Details: Pads were placed in anterior-posterior position. CORRY probe was advanced and standard images obtained. There is no evidence of left atrial or left atrial appendage thrombus. Synchronized cardioversion attempt #1: 100J Results: normal sinus rhythm Conclusions: successful CORRY cardioversion Conclusion Comment: Patient will be started on amiodarone 200 mg twice daily starting today, he will reduce to 200 mg once a day after 1 week and then stop it after 1 month. 6 weeks to 3 months post Maze procedure, he will undergo ablation procedure to ablate the cavo tricuspid isthmus and to reassess for pulmonary vein connection and ablate the mitral isthmus. Patient Problems: Problems Problem Status Onset Atrial fibrillation or flutter Acute
== END 2017-09-28 13:15 | disposition home or self-care (01) ==
LOC: FCATH 09:35
PROVIDERS: ATTEND Internal Medicine Cardiovascular Disease
DX: I48.1 Persistent atrial fibrillation (principal); I10 Essential (primary) hypertension; G47.33 Obstructive sleep apnea (adult) (pediatric)
CPT/HCPCS: J0461; J2001; J2250; J2704

== ENCOUNTER → 2017-10-11 | Outpatient (CLI) | payer OTHER | LOC: EDSTATUS 09:55 → FIMAGING 13:30 | PROVIDERS: ATTEND Thoracic Surgery (Cardiothoracic Vascular Surgery) | DX: I49.9 Cardiac arrhythmia, unspecified (principal); Z86.79 Personal history of other diseases of the circulatory system ==